=== PATIENT | female | born 1975 | race Caucasian/White ===

== ENCOUNTER 2017-01-03 12:49 | Emergency (ER) | payer MEDICARE, OTHER ==
[2017-01-03 13:42] VITALS: RESP 18
[2017-01-03] MEDS ORDERED: PENICILLIN V POTASSIUM 250 MG TAB PO STA (13:47)
[2017-01-03] MEDS ORDERED: ACETAMINOPHEN TAB 325 MG TAB PO STA (13:47)
--- NOTE | 2017-01-03 13:55 | ED ---
ENT HPI - General Chief complaint: Dental/Oral Stated complaint: Dental Pain Time Seen by Provider: 01/03/17 13:40 Source: patient Mode of arrival: ambulatory - History of Present Illness MD complaint: tooth pain Onset/Timin (Increased dental pain over the last 2 days) -: week(s) Location: tooth # (21 and 28) Severity: severe Severity scale (1-10): 10 Quality: sharp Consistency: constant Improves with: none Worsens with: none, eating Context- Dental: poor dental care - Related Data Previous Rx's Medication Instructions Recorded Penicillin V Potassium [Pen Vee K] 500 mg PO QID #28 tab 01/03/17 Allergies Allergy/AdvReac Type Severity Reaction Status Date / Time amitriptyline Allergy Unknown Verified 01/03/17 13:45 duloxetine [From Cymbalta] Allergy Unknown Verified 01/03/17 13:45 fluoxetine [From Prozac] Allergy Unknown Verified 01/03/17 13:45 ibuprofen [From Motrin] Allergy Unknown Verified 01/03/17 13:45 meloxicam [From Mobic] Allergy Unknown Verified 01/03/17 13:45 naproxen Allergy Unknown Verified 01/03/17 13:45 pregabalin [From Lyrica] Allergy Unknown Verified 01/03/17 13:45 sertraline [From Zoloft] Allergy Unknown Verified 01/03/17 13:45 trazodone Allergy Unknown Verified 01/03/17 13:45 Review of Systems ROS Statement: Those systems with pertinent positive or pertinent negative responses have been documented in the HPI. ROS Other: All systems not noted in ROS Statement are negative. Past Medical History Past Medical History: Fibromyalgia, Osteoarthritis (OA) History of Any Multi-Drug Resistant Organisms: None Reported Past Surgical History: Section, Hysterectomy Past Psychological History: Anxiety, Depression, PTSD Smoking Status: Current every day smoker Past Alcohol Use History: None Reported Past Drug Use History: None Reported General Exam Limitations: no limitations General appearance: alert, in no apparent distress Head exam: Present: atraumatic, normocephalic, normal inspection Eye exam: Present: normal appearance. Absent: scleral icterus, conjunctival injection, periorbital swelling, periorbital tenderness ENT exam: Present: mucous membranes moist, TM's normal bilaterally, normal external ear exam Expanded Ear exam: Present: normal external inspection Mouth exam: Present: tongue normal. Absent: drooling, trismus Teeth exam: Present: dental caries (21), dental tenderness # (21 and 28), other (Patient has multiple missing teeth. No obvious abscess is noted. ) Neck exam: Present: normal inspection, full ROM. Absent: tenderness, meningismus, lymphadenopathy Respiratory exam: Present: normal lung sounds bilaterally. Absent: respiratory distress, wheezes, rales Cardiovascular Exam: Present: regular rate, normal rhythm, normal heart sounds. Absent: systolic murmur GI/Abdominal exam: Present: soft, normal bowel sounds. Absent: distended Back exam: Present: normal inspection, full ROM Neurological exam: Present: alert, oriented X3, CN II-XII intact, normal gait, other (No focal deficits noted) Psychiatric exam: Present: normal affect, normal mood Skin exam: Present: warm, dry, intact, normal color Course Vital Signs 01/03/17 13:37 Temperature 99.4 F Pulse Rate 98 Respiratory 18 Rate Blood Pressure 152/85 O2 Sat by Pulse 99 Oximetry Medical Decision Making - Medical Decision Making Toothache, dental carry to tooth #28. No obvious abscess identified. Patient instructed to finish antibiotic as prescribed. Patient instructed to continue Tylenol, ice, or warm compresses for comfort. Patient instructed to follow-up with dentist. Patient agrees with treatment plan. Discharge instructions and return parameters reviewed. Disposition Clinical Impression: Toothache, Dental caries Disposition: HOME SELF-CARE Condition: Good Instructions: Dental Caries (ED), Toothache (ED) Additional Instructions: Finish antibiotics as prescribed. Continue Tylenol, ice, or warm compresses for pain or discomfort. Please follow-up with dentist in next 24-48 hours. Please see handout on [facility] or [facility] handout. Please return to the emergency department with new or worsening symptoms. Please follow-up with primary care provider as directed. Prescriptions: Penicillin V Potassium [Pen Vee K] 500 mg PO QID #28 tab Referrals: Jaylan Baxter MD [Primary Care Provider] - 1-2 days Time of Disposition: 13:55
[2017-01-03 14:17] VITALS: BP 125/85; PULSE 86; TEMP 98.2
== END 2017-01-03 14:16 | disposition home or self-care (01) ==
LOC: EC 12:49
DX: K02.9 Dental caries, unspecified (principal); K08.89 Other specified disorders of teeth and supporting structures; F17.200 Nicotine dependence, unspecified, uncomplicated; Z88.1 Allergy status to other antibiotic agents; Z88.5 Allergy status to narcotic agent; Z88.6 Allergy status to analgesic agent; Z88.8 Allergy status to other drugs, medicaments and biological substances
CPT/HCPCS: 99282